=== PATIENT | male | born 1990 | race Caucasian/White ===

== ENCOUNTER 2018-11-07 04:06 | Emergency (ER) | payer OTHER ==
[~2018-11-07] VITALS: Ht 180.3 cm; Wt 79.4 kg
[2018-11-07] MEDS ORDERED: NKM (04:12)
--- NOTE | 2018-11-07 04:26 | Emergency Room Report ---
History of Present Illness General Chief Complaint: Chest Pain Source: Patient Present Illness HPI Patient is a 28 year-old male presented after increased chest discomfort. Patient had prior history of mitral valve prolapse. He reports having intermittent chest discomfort. Patient reports having sharp pain to the left side of his chest. Reports feeling somewhat abnormal. He denies being a smoker. Patient says he last did cocaine approximately 1 week ago. 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 Patient reports having recent increased alcohol intake. He stated he was drinking tequila 1 day prior to arrival.Patient denies any fever. He denies any increased leg swelling or pain. Allergies: Coded Allergies: No Known Allergies (Unverified , 11/07/18) Patient History Past Medical History: see triage record Reviewed Nursing Documentation: PMH: Agreed; PSxH: Agreed Nursing Documentation-PM Past Medical History: No History, Except For Hx Cardiac Problems: Yes - mitral vlave prolapse 2011 Review of Systems All Other Systems: negative except mentioned in HPI Physical Exam Vital Signs Date Time Temp Pulse Resp B/P (MAP) Pulse Ox O2 Delivery O2 Flow Rate FiO2 11/07/18 04:08 98.1 85 18 121/88 97 Room Air Sp02 EP Interpretation: reviewed, normal General Appearance: normal inspection, well appearing, no apparent distress, alert, GCS 15, non-toxic Head: atraumatic ENT: normal ENT inspection, hearing grossly normal, normal voice Neck: normal inspection, full range of motion, supple, no bony tend Respiratory: normal inspection, lungs clear, normal breath sounds, no respiratory distress, no retraction, no wheezing Cardiovascular #1: regular rate, rhythm, no edema Gastrointestinal: normal inspection, normal bowel sounds, non tender, soft, no guarding, no hernia Genitourinary: no CVA tenderness Musculoskeletal: normal inspection, back normal, normal range of motion Neurologic: normal inspection, alert, oriented x3, responsive, senior interactive producer III-XII nml as tested, motor strength/tone normal, speech normal Psychiatric: normal inspection, judgement/insight normal, mood/affect normal Skin: normal inspection, normal color, no rash Medical Decision Making Diagnostic Impression: Primary Impression: Nonspecific chest pain ER Course Patient presented for chest pain. Differential diagnosis included but was not limited to acute coronary syndrome, pulmonary embolism, pneumonia, aortic dissection, shingles, pneumothorax, aortic dissection, esophageal rupture, pericarditis. Because of complexity of patient's case laboratory testing and imaging studies were ordered.Patient was noted to have prior history of mitral valve prolapse. EKG interpreted by me showed normal sinus rhythm with a rate of [address] or T wave changes. Patient was noted to have incomplete right bundle branch block. Labs Test 11/07/18 04:25 White Blood Count 7.7 K/UL (4.8-10.8) Red Blood Count 4.54 M/UL (4.70-6.10) Hemoglobin 14.6 G/DL (14.2-18.0) Hematocrit 41.6 % (42.0-52.0) Mean Corpuscular Volume 92 FL (80-99) Mean Corpuscular Hemoglobin 32.2 PG (27.0-31.0) Mean Corpuscular Hemoglobin Concent 35.1 G/DL (32.0-36.0) Red Cell Distribution Width 10.3 % (11.6-14.8) Platelet Count 268 K/UL (150-450) Mean Platelet Volume 6.3 FL (6.5-10.1) Neutrophils (%) (Auto) 57.1 % (45.0-75.0) Lymphocytes (%) (Auto) 33.8 % (20.0-45.0) Monocytes (%) (Auto) 6.4 % (1.0-10.0) Eosinophils (%) (Auto) 1.6 % (0.0-3.0) Basophils (%) (Auto) 1.1 % (0.0-2.0) Prothrombin Time 10.5 SEC (9.30-11.50) Prothromb Time International Ratio 1.0 (0.9-1.1) Activated Partial Thromboplast Time 26 SEC (23-33) D-Dimer 0.19 mg/L FEU (0.00-0.49) Sodium Level 137 MMOL/L (136-145) Potassium Level 3.4 MMOL/L (3.5-5.1) Chloride Level 101 MMOL/L (98-107) Carbon Dioxide Level 28 MMOL/L (21-32) Anion Gap 8 mmol/L (5-15) Blood Urea Nitrogen 13 mg/dL (7-18) Creatinine 1.0 MG/DL (0.55-1.30) Estimat Glomerular Filtration Rate > 60 mL/min (>60) Glucose Level 137 MG/DL (74-106) Calcium Level 9.0 MG/DL (8.5-10.1) Total Bilirubin 0.3 MG/DL (0.2-1.0) Aspartate Amino Transf (AST/SGOT) 22 U/L (15-37) Alanine Aminotransferase (ALT/SGPT) 46 U/L (12-78) Alkaline Phosphatase 59 U/L (46-116) Total Creatine Kinase 333 U/L (26-308) Creatine Kinase MB 1.1 NG/ML (0.0-3.6) Creatine Kinase MB Relative Index 0.3 Troponin I 0.000 ng/mL (0.000-0.056) Total Protein 7.4 G/DL (6.4-8.2) Albumin 4.0 G/DL (3.4-5.0) Globulin 3.4 g/dL Albumin/Globulin Ratio 1.2 (1.0-2.7) EKG Diagnostic Results Rate: normal Rhythm: NSR ST Segments: no acute changes Last Vital Signs Date Time Temp Pulse Resp B/P (MAP) Pulse Ox O2 Delivery O2 Flow Rate FiO2 11/07/18 04:08 98.1 85 18 121/88 97 Room Air Status: improved Disposition: HOME, SELF-CARE Condition: Stable Scripts Lorazepam* (ATIVAN*) 1 Mg Tablet 1 MG ORAL BEDTIME, #14 TAB Prov: Bob Tijerina MD 11/07/18 Bob Tijerina MD Nov 07, 2018 04:26
[2018-11-07] MEDS ORDERED: Isovue-370 150ml vial INJ PRN (04:30)
--- NOTE | 2018-11-07 04:35 | NUR ---
ED Nurse Note: RECIEVED PT FROM HOME WITH C/O CHEST TIGHTNESS FOR PAST 4 DAYS AFTER SMOKING COCAINE, PT STATES PAIN IS INTERMITTENT AND NOW AT 4/10, ALSO HAS INTERMITTENT NAUSEA, NO SOB OR LABORED BREATHING OR ANY OTHER COMPLAINTS, PT IS RESTLESS AND ANXIIOUS FROM READING POSSIBLE DIAGNOSIS ON INTERNET, PT PLACED ON CARDIAC MONITORING, SLIGHT TACHYCARDIA NOTED, IV LINE PLACED AND LABS DRAWN, WILL RESUME CARE ORDERED AND CONTINUE TO CLOSELY MONITOR.
[2018-11-07 04:39] LABS: BASOPHILS % (AUTO) 1.1 % (0.0-2.0); EOSINOPHILS % (AUTO) 1.6 % (0.0-3.0); HEMATOCRIT 41.6 % (42.0-52.0); HEMOGLOBIN 14.6 G/DL (14.2-18.0); LYMPHOCYTES % (AUTO) 33.8 % (20.0-45.0); MEAN CORPUSCULAR VOLUME 92 FL (80-99); MONOCYTES % (AUTO) 6.4 % (1.0-10.0); NEUTROPHILS % (AUTO) 57.1 % (45.0-75.0); PLATELET COUNT 268 K/UL (150-450); RED BLOOD COUNT 4.54 M/UL (4.70-6.10); RED CELL DISTRIBUTION WIDTH 10.3 % (11.6-14.8); WHITE BLOOD COUNT 7.7 K/UL (4.8-10.8)
[2018-11-07] MEDS ORDERED: Dicyclomine HCl 10mg/5ml oral soln ORAL ONE (04:45)
[2018-11-07] MEDS ORDERED: Lidocaine 2% Visc 15ml soln ORAL ONE (04:45)
[2018-11-07 04:53] LABS: ANION GAP 8 mmol/L (5-15); BLOOD UREA NITROGEN 13 mg/dL (7-18); CARBON DIOXIDE 28 MMOL/L (21-32); CHLORIDE 101 MMOL/L (98-107); POTASSIUM 3.4 MMOL/L (3.5-5.1); SODIUM 137 MMOL/L (136-145)
[2018-11-07 05:00] VITALS: BP 136/88
[2018-11-07] MEDS ORDERED: LORazepam Inj 2mg/ml 1ml IV ONE (05:00)
[2018-11-07 05:07] LABS: ALANINE AMINOTRANSFERASE 46 U/L (12-78); ALBUMIN/GLOBULIN RATIO 1.2 (1.0-2.7); ALKALINE PHOSPHATASE 59 U/L (46-116); ASPARTATE AMINO TRANSFERASE 22 U/L (15-37); BILIRUBIN,TOTAL 0.3 MG/DL (0.2-1.0); CKMB 1.1 NG/ML (0.0-3.6); CREATINE KINASE 333 U/L (26-308)
[2018-11-07] MEDS ORDERED: ATIVAN1 MG ORAL (05:59)
[2018-11-07 06:00] VITALS: BP 113/68
--- NOTE | 2018-11-07 06:00 | NUR ---
ED Nurse Note: PT CONTINUES TO REST IN BED, MEDICATED WITH ATIVAN, MEDS EFFECTIVE, PT IS MORE CALM AND LESS RESTLESS, NO CHEST PAIN OR TIGHTNESS AT THIS TIME, REMAINS ON CARDIAC MONITORING, STARTED ON ORDERED IV FLUIDS, WILL RESUME CARE AND CONTINUE TO CLOSELY MONITOR AND PREARE FOR DISPOSTIION.
--- NOTE | 2018-11-07 06:12 | Diagnostic Imaging Report ---
AP CXR: HISTORY: 28-year-old male with chest pain. COMPARISON: None. FINDINGS: The lungs are grossly clear. Heart size is normal. No obvious hilar or mediastinal mass. No obvious pneumothorax or effusion. Bones and chest wall soft tissues are grossly unremarkable. IMPRESSION: Unremarkable one view CXR.
[2018-11-07] MEDS ORDERED: Sodium Chloride 500ML 500 ML IV ONE (06:15)
[2018-11-07 07:00] VITALS: BP 117/64
--- NOTE | 2018-11-07 07:00 | NUR ---
ED Nurse Note: pt being d/c to home, completed iv fluids, tolerated well, remains without chest pain, no sob or labored breathing noted, pt given f/u info and after care instructions, also re-verbalizes proper medication administration and s/s to continue to monitor for, pt iv and arm band removed without incident, pt leaving ambulatory in uber, nad noted during d/c to home.
[2018-11-07 07:15] VITALS: BP 117/64
== END 2018-11-07 07:21 | disposition home or self-care (01) ==
LOC: EMR 04:36
DX: R07.9 Chest pain, unspecified (principal); M25.511 Pain in right shoulder
CPT/HCPCS: 36415; 71045; 80053; 82550; 82553; 84484; 85025; 85379; 85610; 85730; 93005; 96374; 99284; J8499

== ENCOUNTER 2018-11-25 01:47 | Emergency (ER) | payer OTHER ==
[~2018-11-25] VITALS: Ht 180.3 cm; Wt 74.8 kg
[~2018-11-25 01:47] MED LIST: ATIVAN1 MG ORAL; NKM
[2018-11-25 02:02] VITALS: BP 124/81
--- NOTE | 2018-11-25 02:02 | NUR ---
ED Nurse Note: Pt arrived ED from Home, c/o Fatigued today. Pt is A/O X4, Vital signs stable at this time. waitng for orders.
--- NOTE | 2018-11-25 02:21 | Emergency Room Report ---
History of Present Illness General Chief Complaint: General Complaint Source: Patient Present Illness HPI Patient presents with complaints of general malaise Reports feeling fatigued and tired Patient reports that throughout the day he has felt some chills Denies any neck pain or photophobia denies any obvious fevers denies any chest pain or shortness of breath Patient was here 2 weeks ago with some similar complaints reports that he Went to [place] several days after that He has also been seen by his slat basket top maker last week with a cardiac examination as he reports he has a history of mitral valve prolapse Denies any cough denies any dyspnea Denies any focal weakness Allergies: Coded Allergies: No Known Allergies (Unverified , 11/07/18) Patient History Past Medical History: see triage record Pertinent Family History: none Reviewed Nursing Documentation: PMH: Agreed; PSxH: Agreed Nursing Documentation-PMH Hx Cardiac Problems: Yes - MVP Review of Systems All Other Systems: negative except mentioned in HPI Physical Exam Vital Signs Date Time Temp Pulse Resp B/P (MAP) Pulse Ox O2 Delivery O2 Flow Rate FiO2 11/25/18 01:55 97.9 84 16 123/80 98 Room Air Sp02 EP Interpretation: reviewed, normal General Appearance: well appearing, no apparent distress Head: normocephalic, atraumatic Eyes: bilateral eye PERRL, bilateral eye EOMI ENT: hearing grossly normal, normal pharynx, TMs + canals normal, uvula midline Neck: full range of motion, supple, no meningismus, no bony tend Respiratory: lungs clear, normal breath sounds, no rhonchi, no respiratory distress, no retraction, no accessory muscle use Cardiovascular #1: normal peripheral pulses, regular rate, rhythm, no edema, no gallop, no JVD, no murmur Gastrointestinal: normal bowel sounds, non tender, soft, no mass, no organomegaly, non-distended, no guarding, no hernia, no pulsatile mass, no rebound Genitourinary: no CVA tenderness Musculoskeletal: normal inspection Neurologic: oriented x3, responsive, irish moss gatherer III-XII nml as tested, motor strength/ tone normal, sensory intact Psychiatric: mood/affect normal Skin: normal color, no rash, warm/dry, palpation normal Lymphatic: normal inspection, no adenopathy Medical Decision Making Diagnostic Impression: Primary Impression: Weakness ER Course Multiple differentials considered including but not limited to cardiac electrolyte,, infectious pathology Patient has previous presentation evaluated had fairly extensive blood work with imaging Patient's medical evaluation at this time is normal afebrile and hemodynamically stable Patient also had reported previously cocaine abuse Potentially having some depletion of serotonin other pathology from that abuse Nevertheless the patient at this time remains hemodynamically stable appears well is afebrile I do not appreciate any obvious signs of sepsis or septic shock And the patient is stable for close outpatient follow-up Last Vital Signs Date Time Temp Pulse Resp B/P (MAP) Pulse Ox O2 Delivery O2 Flow Rate FiO2 11/25/18 01:55 97.9 84 16 123/80 98 Room Air Status: unchanged Disposition: HOME, SELF-CARE Condition: Stable Referrals: [facility]ERR[facility] (PCP) Additional Instructions: Patient is provided with the discharge instructions notified to follow up with primary doctor in the next 2-3 days otherwise return to the er with any worsening symptoms. Please note that this report is being documented using [employer] technology. This can lead to erroneous entry secondary to incorrect interpretation by the dictating instrument. Paresh Caballero DO Nov 25, 2018 02:21
[2018-11-25 02:25] VITALS: BP 123/82
--- NOTE | 2018-11-25 02:25 | NUR ---
ED Nurse Note: Pt has seen by Dr. Caballero. All orders carried out. Pt is ready for discharge. D/c instruction and prescrition given to Pt and verbalized understanding. ID band removed. Pt d/c from ED with steady gait.
== END 2018-11-25 02:25 | disposition home or self-care (01) ==
LOC: EMR 02:09
DX: R53.1 Weakness (principal); I34.1 Nonrheumatic mitral (valve) prolapse
CPT/HCPCS: 99282

== ENCOUNTER 2019-11-02 11:04 | Emergency (ER) | payer OTHER ==
[~2019-11-02] VITALS: Ht 180.3 cm; Wt 74.8 kg
[2019-11-02 11:32] VITALS: BP 129/84
--- NOTE | 2019-11-02 11:32 | Emergency Room Report ---
History of Present Illness General Chief Complaint: Flu Like Symptoms Source: Patient Present Illness HPI Patient is a 29-year-old male who presents after increased left-sided ear pain as well as sore throat. Reports having subjective fever. He denies any vomiting or diarrhea. He reports having increased cough. Denies any recent bloody stools. He reports having increased lightheadedness. He denies any history of smoking. He reports having prior history of mitral valve prolapse. Also has Celestina Danlos syndrome. Allergies: Coded Allergies: No Known Allergies (Unverified , 11/07/18) Patient History Past Medical History: see triage record Reviewed Nursing Documentation: PMH: Agreed; PSxH: Agreed Nursing Documentation-PMH Past Medical History: No History, Except For Hx Cardiac Problems: Yes - MVP Review of Systems All Other Systems: negative except mentioned in HPI Physical Exam Vital Signs Date Time Temp Pulse Resp B/P (MAP) Pulse Ox O2 Delivery O2 Flow Rate FiO2 11/02/19 11:10 97.3 87 21 129/84 (99) 99 Room Air General Appearance: well appearing, no apparent distress, alert, GCS 15 Head: normocephalic, atraumatic ENT: hearing grossly normal, normal voice Neck: full range of motion, supple Respiratory: lungs clear, normal breath sounds, no respiratory distress, speaking full sentences Cardiovascular #1: normal inspection Gastrointestinal: normal inspection Musculoskeletal: normal inspection, no calf tenderness Neurologic: alert, motor strength/tone normal, sprinkler worker III-XII nml as tested, EOM palsy, oriented x3, normal gait Psychiatric: mood/affect normal Skin: no rash Medical Decision Making Diagnostic Impression: Primary Impression: Otitis media ER Course Patient presented for increased cough and left earache. Differential diagnosis include was not limited to strep pharyngitis, tonsillar abscess, pneumonia among others. Patient has normal lung exams. He reports having recent negative stress testing. Does not appear to be in any acute distress.Patient appears to have an early left otitis media. He will be given prescription for oral antibiotics. He was advised to follow-up with primary care physician for recheck. He is to return if worse. He appears to be stable for discharge. Patient was advised to continue oral hydration. The patient is advised to follow up with primary care doctor in 1-2 days. Patient is advised to return if any worsening condition or if any changes in status that are concerning. This report is dictated with [employer] director of business operations software which may occasionally lead to discrepancies related to use of this software. Last Vital Signs Date Time Temp Pulse Resp B/P (MAP) Pulse Ox O2 Delivery O2 Flow Rate FiO2 11/02/19 11:10 97.3 87 21 129/84 (99) 99 Room Air Status: improved Disposition: HOME, SELF-CARE Condition: Stable Scripts Amoxicillin* (AMOXIL*) 500 Mg Capsule 500 MG ORAL THREE TIMES A DAY, #21 CAP Prov: Bob Tijerina MD 11/02/19 Ibuprofen* (MOTRIN*) 600 Mg Tablet 600 MG ORAL Q8H PRN for For Pain, #30 TAB 0 Refills Prov: Bob Tijerina MD 11/02/19 Referrals: NON PHYSICIAN (PCP) Bob Tijerina MD Nov 02, 2019 11:32
--- NOTE | 2019-11-02 11:35 | NUR ---
ED Nurse Note: pt walked in to ER from home due to coughing with green phlem, bodyache, nausea, bilateral earache for 3 days. pt aao x4 and ambulatory. skin clean and intact. moaning for throat pain 5/10 to cough. frequent cough noted with gramicing. no cardiac or pulmonary acute distress noted at this time.
--- NOTE | 2019-11-02 11:38 | NUR ---
ED Nurse Note: ERMD at bedside.
[2019-11-02] MEDS ORDERED: AMOXICILLIN500 MG ORAL (11:40)
[2019-11-02] MEDS ORDERED: IBUPROFEN600 MG ORAL (11:40)
[2019-11-02] MEDS ORDERED: Meclizine 25mg tab ORAL ONE (11:45)
--- NOTE | 2019-11-02 11:55 | NUR ---
ED Nurse Note: pt cleared to be d/c per ERMD, pt discharge and aftercare instruction provided w/ prescription, pt education done via discussion and handout, pt advised to follow up with pcp or return to ed if changes in condition, pt verbalized understanding and agrees with plan, vss, ambulatory w/ steady gait, id band removed, left w/ all belongings.
[2019-11-02 11:57] VITALS: BP 129/84
== END 2019-11-02 11:57 | disposition home or self-care (01) ==
LOC: EMR 11:24
DX: H66.92 Otitis media, unspecified, left ear (principal); R07.0 Pain in throat
CPT/HCPCS: 99282